=== PATIENT | female | born 1980 | race Two or more races ===

== ENCOUNTER 2019-10-31 19:34 | Emergency (ER) | payer SELFPAY ==
[~2019-10-31] VITALS: Ht 175.3 cm; Wt 88.9 kg
--- NOTE | 2019-10-31 19:59 | NUR ---
39/f pt from home. bibself c/o left lower back pain after a slip and fall on sidewalk earlier today. pt denies having loss of conciousness, & denies any head trauma. pt is a/ox4, verbal, able to make needs known. vs stable. pt is resting comfortably in bed. no s/s ofa cute distress or sob noted. pt being seen by [employer] bookkeeper at bedside.
[2019-10-31] MEDS ORDERED: HYDROCODONE/APAP 5/325MG 1 EACH TABLET PO ONE (20:00)
--- NOTE | 2019-10-31 20:00 | NUR ---
Pt DENIES . SIGNED WAIVER FORM TO BYPASS URINE TEST.
--- NOTE | 2019-10-31 20:04 | NUR ---
XR OF LUMBAR SPINE BEING TAKEN IN ROOM.
[2019-10-31] MEDS ORDERED: HYDROCODONE/APAP 5/325MG 1 EACH TABLET ONE (20:09)
[2019-10-31 21:11] VITALS: BP 118/67
--- NOTE | 2019-10-31 21:11 | NUR ---
Patient discharged to home in stable condition. Written and verbal after care instructions given. Patient verbalizes understanding of instruction.
== END 2019-10-31 21:12 | disposition home or self-care (01) ==
LOC: ER 19:42
DX: M54.5 Low back pain (principal); G89.29 Other chronic pain; Z88.6 Allergy status to analgesic agent
CPT/HCPCS: 72110-TC

== ENCOUNTER 2022-09-26 22:29 | Emergency (ER) | payer MEDICAID, OTHER ==
[~2022-09-26] VITALS: Ht 175.3 cm; Wt 78.9 kg
[2022-09-26 22:46] VITALS: BP 129/84
[2022-09-26] MEDS ORDERED: METHOCARBAMOL (500MG) 500 MG TABLET ONE (23:17)
[2022-09-26] MEDS ORDERED: ACETAMINOPHEN ES 500 MG TABLET ONE (23:17)
[2022-09-26] MEDS: LIDOCAINE 5% (PATCH) 1 EA PATCH TP SCH (23:21)
[2022-09-26] MEDS ORDERED: METHOCARBAMOL (500MG) 500 MG TABLET PO ONE (23:30)
[2022-09-26] MEDS ORDERED: ACETAMINOPHEN ES 500 MG TABLET PO ONE (23:30)
[2022-09-26] MEDS ORDERED: LIDOCAINE 5% (PATCH) 1 EA PATCH TP ONE (23:35)
[2022-09-27] MEDS: LIDOCAINE 5% (PATCH) 1 EA PATCH TP SCH (00:04)
--- NOTE | 2022-09-27 00:04 | NUR ---
Patient eloped from facility. ER MD notified.
== END 2022-09-27 00:06 | disposition left against medical advice (07) ==
LOC: ER 22:31
DX: M54.50 Low back pain, unspecified (principal); G89.29 Other chronic pain; Z88.8 Allergy status to other drugs, medicaments and biological substances